=== PATIENT | male | born 1940 ===

== ENCOUNTER 2017-05-04 09:24 | Observation (INO) ==
[2017-05-04 10:16] LABS: Basophils # 0.1 10*3/uL (0.0-0.2); Basophils % 1.2 % (0.0-0.8); Eosinophils # 0.2 10*3/uL (0.0-0.87); Eosinophils % 2.6 % (0.00-10.9); Hemoglobin 16.3 GM/DL (14.0-18.0); Immature Granulocytes % 0.6 %; Immature Granulocytes Absolute 0.05 #; Lymphocytes # 2.1 10*3/uL (1.4-4.0); Lymphocytes % 25.9 % (21.2-54.2); Mean Corpuscular HGB Conc 33.3 GM/DL (32-36); Mean Corpuscular Hemoglobin 28 PG (27-34); Mean Corpuscular Volume 84.2 FL (87-102); Mean Platelet Volume 9.9 FL (9.6-12.0); Monocytes # 0.6 10*3/uL (0.11-0.8); Monocytes % 7.3 % (1.7-12.7); Neutrophils % 62.4 % (38.7-73.9); Platelet Count 267 T/CUMM (130-400); Red Blood Count 5.82 MC/CUMM (3.8-5.5); Red Cell Distribution Width 13.9 % (9.3-17.3); White Blood Count 8.1 T/CUMM (4-12)
[2017-05-04 10:25] LABS: Barbiturates Screen,Urine Negative (Negative); Benzodiazepines Screen,Urine Negative (Negative); Cannabinoid Screen,Urine Negative (Negative); INR 0.9; Opiate Screen,Urine Negative (Negative); Partial Thromboplastin Time 26.7 SECS (0-40); Phencyclidine Screen,Urine Negative (Negative)
[2017-05-04 10:56] LABS: Alanine Aminotransferase 65 U/L (16-61); Albumin 4.4 G/DL (3.4-5.0); Alkaline Phosphatase 60 U/L (45-117); Aspartate Amino Transferase 32 U/L (0-37); Blood Urea Nitrogen 26 MG/DL (7-18); Calcium 9.6 MG/DL (8.5-10.1); Glucose 173 MG/DL (74-106); Potassium 4.4 MMOL/L (3.5-5.1); Sodium 136 MMOL/L (136-145); Thyroid Stimulating Hormone 0.892 uIU/ml (0.358-3.74); Total Protein 7.8 G/DL (6.4-8.3); Troponin I Only < 0.015 NG/ML (0.00-0.045)
[2017-05-04] MEDS ORDERED: ACETAMINOPHEN 325 MG TABLET PO PRN (11:44)
[2017-05-04] MEDS ORDERED: DOCUSATE SODIUM 100 MG CAPSULE PO PRN (11:44)
[2017-05-04] MEDS ORDERED: DEXTROSE 50% 25 GM/50 ML VIAL IV PRN ×2 (11:44→11:48)
[2017-05-04] MEDS ORDERED: LACTULOSE 20 GM/30 ML UDCUP PO PRN (11:44)
[2017-05-04] MEDS ORDERED: MORPHINE 2 MG/1 ML SYRINGE IV PRN (11:44)
[2017-05-04] MEDS ORDERED: MAGNESIUM SULF RIDER 2 GM in PREMIX 1 EACH IV PRN (11:44)
[2017-05-04] MEDS ORDERED: MAGNESIUM SULF RIDER 4 GM in PREMIX 1 EACH IV PRN (11:44)
[2017-05-04] MEDS ORDERED: diphenhydrAMINE CAP 25 MG CAPSULE PO PRN ×2 (11:44→17:46)
[2017-05-04] MEDS ORDERED: GLUCAGON 1 MG VIAL IM PRN ×2 (11:44→11:48)
[2017-05-04] MEDS ORDERED: ZALEPLON 5 MG CAPSULE PO PRN (11:44)
[2017-05-04] MEDS ORDERED: ONDANSETRON 4 MG/2 ML VIAL IV PRN (11:44)
[2017-05-04] MEDS ORDERED: NITROGLYCERIN SL 0.4 MG TABLET SL PRN (11:52)
[2017-05-04] MEDS: CARVEDILOL 3.125 MG TABLET PO SCH ×2 (16:36→17:43)
[2017-05-04] MEDS: INSULIN REGULAR 100 UNIT/ML SUBCUT SCH ×2 (16:36→20:59)
[2017-05-04] MEDS: CLOPIDOGREL 75 MG TABLET PO SCH (16:36)
[2017-05-04] MEDS: PANTOPRAZOLE 40 MG TABLET PO SCH (16:36)
[2017-05-04] MEDS: DUTASTERIDE 0.5 MG CAPSULE PO SCH (20:58)
[2017-05-04] MEDS: ATORVASTATIN 40 MG TABLET PO SCH (20:58)
[2017-05-04] MEDS: ENOXAPARIN 40 MG/0.4 ML SYRINGE SUBCUT SCH (20:59)
[2017-05-05] MEDS: SODIUM CHLORIDE 0.45% 1,000 ML IV SCH ×2 (01:25→11:05)
[2017-05-05 05:21] LABS: Basophils # 0.1 10*3/uL (0.0-0.2); Basophils % 1.1 % (0.0-0.8); Eosinophils # 0.3 10*3/uL (0.0-0.87); Hemoglobin 14.5 GM/DL (14.0-18.0); Immature Granulocytes % 0.4 %; Immature Granulocytes Absolute 0.04 #; Lymphocytes % 32.2 % (21.2-54.2); Mean Corpuscular Hemoglobin 28 PG (27-34); Mean Platelet Volume 9.8 FL (9.6-12.0); Monocytes # 0.8 10*3/uL (0.11-0.8); Monocytes % 8.9 % (1.7-12.7); Neutrophils # 5.1 10*3/uL (1.4-7.4); Neutrophils % 54.4 % (38.7-73.9); Platelet Count 239 T/CUMM (130-400); Red Blood Count 5.24 MC/CUMM (3.8-5.5); Red Cell Distribution Width 13.8 % (9.3-17.3); White Blood Count 9.4 T/CUMM (4-12)
[2017-05-05 05:51] LABS: Albumin 3.7 G/DL (3.4-5.0); Bilirubin,Total 0.6 MG/DL (0.2-1.0); Calcium 8.7 MG/DL (8.5-10.1); Osmolality,Calculated 280.8 MOS/KG (273-304); Potassium 4.2 MMOL/L (3.5-5.1); Total Protein 6.6 G/DL (6.4-8.3)
[2017-05-05] MEDS ORDERED: diphenhydrAMINE CAP 25 MG CAPSULE PO ONE (07:00)
[2017-05-05] MEDS ORDERED: DIAZEPAM 5 MG TABLET PO ONE (07:00)
[2017-05-05] MEDS: INSULIN REGULAR 100 UNIT/ML SUBCUT SCH ×4 (09:45→21:26)
[2017-05-05] MEDS: LOSARTAN 50 MG TABLET PO SCH (10:29)
[2017-05-05] MEDS: CARVEDILOL 3.125 MG TABLET PO SCH ×2 (10:30→16:22)
[2017-05-05] MEDS: ASPIRIN EC 81 MG TABLET PO SCH (10:30)
[2017-05-05] MEDS: ALLOPURINOL 100 MG TABLET PO SCH (10:30)
[2017-05-05] MEDS: CLOPIDOGREL 75 MG TABLET PO SCH (10:30)
[2017-05-05] MEDS: hydroCHLOROthiazide 25 MG TABLET PO SCH (10:30)
[2017-05-05] MEDS: CHLORTHALIDONE 25 MG TABLET PO SCH (10:30)
[2017-05-05] MEDS: PANTOPRAZOLE 40 MG TABLET PO SCH (10:30)
[2017-05-05] MEDS: INSULIN LISPRO PROTAMINE/LISPRO 75/25 100 UNIT/ML SUBCUT SCH (10:33)
[2017-05-05] MEDS ORDERED: LIDOCAINE 1%/EPI INJ 20 ML VIAL ONE (10:39)
[2017-05-05] MEDS ORDERED: HEPARIN/NACL 0.9% 2 UNITS/ML 2,000 ML IV ONE (10:39)
[2017-05-05] MEDS ORDERED: ENOXAPARIN 60 MG/0.6 ML SYRINGE ONE (11:52)
[2017-05-05] MEDS ORDERED: TIROFIBAN 5,000 MCG/100 ML PREMIX IV ONE (11:54)
[2017-05-05] MEDS ORDERED: fentaNYL 100 MCG/2 ML VIAL ONE (11:57)
[2017-05-05] MEDS ORDERED: MIDAZOLAM 2 MG/2 ML VIAL ONE (11:57)
[2017-05-05] MEDS ORDERED: TIROFIBAN 5,000 MCG/100 ML PREMIX IV SCH (12:08)
[2017-05-05] MEDS ORDERED: CLOPIDOGREL 300 MG TABLET ONE (12:11)
[2017-05-05 12:52] LABS: Apearance,Urine CLEAR (Clear); Bilirubin,Urine Negative (Negative); Blood, Urine Small mg/dL (Negative); Glucose,Urine (UA) 50 mg/dL (Negative); Ketones,Urine Negative (Negative); Nitrite,Urine Negative (Negative); Protein,Urine Negative; RBC,Urine 1 /HPF (0-4); Urine Color Colorless (Yellow); Urine Specific Gravity 1.035 (1.001-1.035); Urine Urobilinogen < 2.0 EU/DL (0.2-1.0)
[2017-05-05] MEDS: sitaGLIPtin 100 MG TABLET PO SCH (16:21)
[2017-05-05] MEDS: ENOXAPARIN 40 MG/0.4 ML SYRINGE SUBCUT SCH (21:25)
[2017-05-05] MEDS: ATORVASTATIN 40 MG TABLET PO SCH (21:25)
[2017-05-05] MEDS: DUTASTERIDE 0.5 MG CAPSULE PO SCH (21:25)
[2017-05-06] MEDS: SODIUM CHLORIDE 0.45% 1,000 ML IV SCH (01:45)
[2017-05-06 04:34] LABS: Basophils # 0.1 10*3/uL (0.0-0.2); Basophils % 0.9 % (0.0-0.8); Eosinophils # 0.3 10*3/uL (0.0-0.87); Eosinophils % 3.1 % (0.00-10.9); Hematocrit 42.6 VOL% (42.0-52.0); Hemoglobin 14.2 GM/DL (14.0-18.0); Immature Granulocytes % 0.4 %; Immature Granulocytes Absolute 0.04 #; Lymphocytes # 2.3 10*3/uL (1.4-4.0); Mean Corpuscular HGB Conc 33.3 GM/DL (32-36); Mean Corpuscular Hemoglobin 28 PG (27-34); Mean Corpuscular Volume 83.7 FL (87-102); Mean Platelet Volume 10.1 FL (9.6-12.0); Monocytes # 0.9 10*3/uL (0.11-0.8); Monocytes % 9.5 % (1.7-12.7); Neutrophils % 62.1 % (38.7-73.9); Platelet Count 245 T/CUMM (130-400); Red Blood Count 5.09 MC/CUMM (3.8-5.5); Red Cell Distribution Width 13.9 % (9.3-17.3); White Blood Count 9.7 T/CUMM (4-12)
[2017-05-06 05:20] LABS: Calcium 8.6 MG/DL (8.5-10.1); Osmolality,Calculated 278.1 MOS/KG (273-304); Potassium 4.4 MMOL/L (3.5-5.1)
[2017-05-06] MEDS: LOSARTAN 50 MG TABLET PO SCH (09:43)
[2017-05-06] MEDS: ALLOPURINOL 100 MG TABLET PO SCH (09:43)
[2017-05-06] MEDS: CHLORTHALIDONE 25 MG TABLET PO SCH (09:43)
[2017-05-06] MEDS: hydroCHLOROthiazide 25 MG TABLET PO SCH (09:44)
[2017-05-06] MEDS: ASPIRIN EC 81 MG TABLET PO SCH (09:44)
[2017-05-06] MEDS: INSULIN LISPRO PROTAMINE/LISPRO 75/25 100 UNIT/ML SUBCUT SCH (09:44)
[2017-05-06] MEDS: CARVEDILOL 3.125 MG TABLET PO SCH (09:44)
[2017-05-06] MEDS: sitaGLIPtin 100 MG TABLET PO SCH (09:44)
[2017-05-06] MEDS: PANTOPRAZOLE 40 MG TABLET PO SCH (09:44)
[2017-05-06] MEDS: CLOPIDOGREL 75 MG TABLET PO SCH (09:44)
[2017-05-06] MEDS: INSULIN REGULAR 100 UNIT/ML SUBCUT SCH ×2 (09:56→12:47)
[2017-05-06 12:09] VITALS: BP 129/71
== END 2017-05-06 14:04 | disposition home or self-care (01) ==
LOC: N.ED 09:24 → N.EDINP 09:24 → N.TELEN 14:28
PROVIDERS: ADMIT Internal Medicine Cardiovascular Disease; ATTEND Internal Medicine Cardiovascular Disease

== ENCOUNTER 2020-06-24 23:02 | Inpatient (IN) ==
[2020-06-24] MEDS ORDERED: ONDANSETRON 4 MG/2 ML VIAL IV STA (23:33)
[2020-06-24] MEDS ORDERED: PIPERACILLIN/TAZOBACTAM 3,375 MG in SODIUM CHLORIDE 0.9% 100 ML IV STA (23:33)
[2020-06-24] MEDS ORDERED: DEXAMETHASONE 4 MG/1 ML VIAL IV STA (23:33)
[2020-06-25 00:44] LABS: Basophils % 0.2 % (0.0-0.8); Hematocrit 43.8 VOL% (42.0-52.0); Hemoglobin 14.2 GM/DL (14.0-18.0); Immature Granulocytes % 0.2 %; Immature Granulocytes Absolute 0.01 #; Lymphocytes # 0.6 10*3/uL (1.4-4.0); Lymphocytes % 9.5 % (21.2-54.2); Mean Corpuscular HGB Conc 32.4 GM/DL (32-36); Mean Platelet Volume 9.7 FL (9.6-12.0); Monocytes % 3.7 % (1.7-12.7); Neutrophils % 86.4 % (38.7-73.9); Platelet Count 256 T/CUMM (130-400); Red Blood Count 5.15 MC/CUMM (3.8-5.5); Red Cell Distribution Width 14.1 % (9.3-17.3); White Blood Count 6.5 T/CUMM (4-12)
[2020-06-25 00:51] LABS: PT Patient Result 10.6 SECS (9.8-11.9)
[2020-06-25 00:55] LABS: Bilirubin,Total 0.6 MG/DL (0.2-1.0); Calcium 8.3 MG/DL (8.5-10.1); Osmolality,Calculated 268.2 MOS/KG (273-304); Total Protein 6.9 G/DL (6.4-8.3)
[2020-06-25 01:11] LABS: Bilirubin,Urine Negative (Negative); Blood, Urine Negative (Negative); Glucose,Urine (UA) Negative (Negative); Ketones,Urine Negative (Negative); Mucus,Urine Occasional /LPF (Occasional); Nitrite,Urine Negative (Negative); Protein,Urine 30 MG/DL; RBC,Urine <1 /HPF (0-4); Squamous Epithelial Cell,Urine Occasional /HPF (0-10); Urine Appearance CLEAR (Clear); Urine Color Yellow (Yellow); Urine Specific Gravity 1.012 (1.001-1.035); Urine Urobilinogen < 2.0 EU/DL (0.2-1.0); WBC,Urine 1 /HPF (0-6)
[2020-06-25] MEDS ORDERED: DEXTROSE 50% 25 GM/50 ML VIAL IV PRN ×2 (02:33)
[2020-06-25] MEDS ORDERED: GLUCAGON 1 MG VIAL IM PRN ×2 (02:33)
[2020-06-25] MEDS ORDERED: ONDANSETRON 4 MG/2 ML VIAL IV PRN (02:33)
[2020-06-25] MEDS ORDERED: MELATONIN 3 MG TABLET PO PRN (02:33)
[2020-06-25] MEDS ORDERED: ACETAMINOPHEN 325 MG TABLET PO PRN (02:33)
[2020-06-25 02:39] LABS: Ferritin 1701.8 ng/ml (26-388)
[2020-06-25] MEDS: ENOXAPARIN 40 MG/0.4 ML SYRINGE SUBCUT SCH (06:40)
[2020-06-25] MEDS: ALBUTEROL INHALER 18 GM INH SCH ×3 (08:23→20:15)
[2020-06-25] MEDS: DEXAMETHASONE 4 MG/1 ML VIAL IV SCH (08:24)
[2020-06-25] MEDS: INSULIN REGULAR 100 UNIT/ML SUBCUT SCH ×4 (08:24→21:12)
[2020-06-25] MEDS: PIPERACILLIN/TAZOBACTAM 3,375 MG in SODIUM CHLORIDE 0.9% 100 ML IV SCH ×2 (08:24→18:12)
[2020-06-25] MEDS: PANTOPRAZOLE 40 MG TABLET PO SCH (08:25)
[2020-06-25] MEDS: CHOLECALCIFEROL 1,000 UNIT TABLET PO SCH (08:25)
[2020-06-25] MEDS: ZINC GLUCONATE 50 MG TABLET PO SCH (08:25)
[2020-06-25] MEDS: ASCORBIC ACID 500 MG TABLET PO SCH ×2 (08:29→21:13)
[2020-06-25] MEDS: CETIRIZINE 10 MG TABLET PO SCH (08:29)
[2020-06-25] MEDS ORDERED: FAMOTIDINE 20 MG TABLET PO SCH (09:00)
[2020-06-25] MEDS ORDERED: SODIUM CHLORIDE 0.9% 1,000 ML IV PRN (11:16)
[2020-06-25] MEDS ORDERED: REMDESIVIR 200 MG in SODIUM CHLORIDE 0.9% 210 ML IV ONE (11:30)
[2020-06-25] MEDS ORDERED: BENZONATATE 100 MG CAPSULE PO PRN (20:34)
[2020-06-25] MEDS: guaiFENesin/DM ER 600-30 MG TABLET PO PRN (21:13)
[2020-06-26] MEDS: PIPERACILLIN/TAZOBACTAM 3,375 MG in SODIUM CHLORIDE 0.9% 100 ML IV SCH ×4 (00:52→23:24)
[2020-06-26] MEDS: ALBUTEROL INHALER 18 GM INH SCH ×4 (01:54→19:10)
[2020-06-26 03:51] LABS: ABG Base Excess -5.5 MMOL/L (-2.5-2.5); ABG HCO3 17.6 MMOL/L (20-26); ABG Oxygen Saturation 98.8 % (95-100); ABG PCO2 28.4 MM HG (35-48); ABG PH 7.409 (7.35-7.45); ABG PO2 158.7 MM HG (80-95); ABG TCO2 18.4 MMOL/L (23-27)
[2020-06-26 05:43] LABS: Basophils % 0.1 % (0.0-0.8); Hematocrit 48.8 VOL% (42.0-52.0); Hemoglobin 15.6 GM/DL (14.0-18.0); Immature Granulocytes % 0.4 %; Lymphocytes % 8.9 % (21.2-54.2); Mean Corpuscular Volume 85.5 FL (87-102); Mean Platelet Volume 9.4 FL (9.6-12.0); Monocytes % 9.7 % (1.7-12.7); Neutrophils % 80.9 % (38.7-73.9); Platelet Count 360 T/CUMM (130-400); Red Blood Count 5.71 MC/CUMM (3.8-5.5); Red Cell Distribution Width 14.4 % (9.3-17.3); White Blood Count 11.4 T/CUMM (4-12)
[2020-06-26 05:44] LABS: Immature Granulocytes Absolute 0.04 #
[2020-06-26 06:23] LABS: Albumin 2.9 G/DL (3.4-5.0); Bilirubin,Total 1.2 MG/DL (0.2-1.0); Calcium 8.6 MG/DL (8.5-10.1); Ferritin 2265.1 ng/ml (26-388); Osmolality,Calculated 278.5 MOS/KG (273-304); Potassium 4.3 MMOL/L (3.5-5.1); Total Protein 7.7 G/DL (6.4-8.3)
[2020-06-26] MEDS: ENOXAPARIN 40 MG/0.4 ML SYRINGE SUBCUT SCH (07:00)
[2020-06-26] MEDS: CHOLECALCIFEROL 1,000 UNIT TABLET PO SCH (08:39)
[2020-06-26] MEDS: INSULIN REGULAR 100 UNIT/ML SUBCUT SCH ×4 (08:39→21:10)
[2020-06-26] MEDS: ASCORBIC ACID 500 MG TABLET PO SCH ×2 (08:39→21:10)
[2020-06-26] MEDS: PANTOPRAZOLE 40 MG TABLET PO SCH (08:39)
[2020-06-26] MEDS: guaiFENesin/DM ER 600-30 MG TABLET PO PRN (08:39)
[2020-06-26] MEDS: DEXAMETHASONE 4 MG/1 ML VIAL IV SCH (08:39)
[2020-06-26] MEDS: CETIRIZINE 10 MG TABLET PO SCH (08:39)
[2020-06-26] MEDS: FAMOTIDINE 20 MG TABLET PO SCH (08:39)
[2020-06-26] MEDS: ZINC GLUCONATE 50 MG TABLET PO SCH (08:39)
[2020-06-26] MEDS: REMDESIVIR 100 MG in SODIUM CHLORIDE 0.9% 100 ML IV SCH (08:42)
[2020-06-26 17:07] LABS: ABG Base Excess -5.5 MMOL/L (-2.5-2.5); ABG Oxygen Saturation 95.8 % (95-100); ABG PCO2 29.9 MM HG (35-48); ABG PH 7.397 (7.35-7.45); ABG PO2 83.2 MM HG (80-95); ABG TCO2 18.9 MMOL/L (23-27)
[2020-06-27] MEDS: ALBUTEROL INHALER 18 GM INH SCH ×4 (01:11→19:03)
[2020-06-27] MEDS: ENOXAPARIN 40 MG/0.4 ML SYRINGE SUBCUT SCH (05:23)
[2020-06-27 06:33] LABS: Basophils % 0.1 % (0.0-0.8); Hematocrit 43.7 VOL% (42.0-52.0); Hemoglobin 14.2 GM/DL (14.0-18.0); Immature Granulocytes % 0.3 %; Immature Granulocytes Absolute 0.03 #; Lymphocytes # 0.9 10*3/uL (1.4-4.0); Lymphocytes % 9.2 % (21.2-54.2); Mean Corpuscular HGB Conc 32.5 GM/DL (32-36); Mean Corpuscular Volume 85.7 FL (87-102); Mean Platelet Volume 9.4 FL (9.6-12.0); Monocytes % 10.3 % (1.7-12.7); Neutrophils % 80.1 % (38.7-73.9); Platelet Count 309 T/CUMM (130-400); Red Cell Distribution Width 14.4 % (9.3-17.3); White Blood Count 9.3 T/CUMM (4-12)
[2020-06-27 08:03] LABS: Calcium 8.5 MG/DL (8.5-10.1); Osmolality,Calculated 297.7 MOS/KG (273-304); Potassium 4.4 MMOL/L (3.5-5.1)
[2020-06-27 08:08] LABS: Ferritin 1604.7 ng/ml (26-388)
[2020-06-27] MEDS: ZINC GLUCONATE 50 MG TABLET PO SCH (09:51)
[2020-06-27] MEDS: DEXAMETHASONE 4 MG/1 ML VIAL IV SCH (09:51)
[2020-06-27] MEDS: FAMOTIDINE 20 MG TABLET PO SCH (09:51)
[2020-06-27] MEDS: CHOLECALCIFEROL 1,000 UNIT TABLET PO SCH (09:51)
[2020-06-27] MEDS: ASCORBIC ACID 500 MG TABLET PO SCH ×2 (09:51→20:48)
[2020-06-27] MEDS: PANTOPRAZOLE 40 MG TABLET PO SCH (09:51)
[2020-06-27] MEDS: CETIRIZINE 10 MG TABLET PO SCH (09:51)
[2020-06-27] MEDS: INSULIN REGULAR 100 UNIT/ML SUBCUT SCH ×4 (09:51→20:48)
[2020-06-27] MEDS: REMDESIVIR 100 MG in SODIUM CHLORIDE 0.9% 100 ML IV SCH (09:54)
[2020-06-27] MEDS: PIPERACILLIN/TAZOBACTAM 3,375 MG in SODIUM CHLORIDE 0.9% 100 ML IV SCH ×3 (11:30→23:16)
[2020-06-28] MEDS: ALBUTEROL INHALER 18 GM INH SCH ×4 (00:11→18:18)
[2020-06-28] MEDS: ENOXAPARIN 40 MG/0.4 ML SYRINGE SUBCUT SCH (05:23)
[2020-06-28 07:15] LABS: Basophils % 0.2 % (0.0-0.8); Hematocrit 46.1 VOL% (42.0-52.0); Immature Granulocytes % 0.7 %; Immature Granulocytes Absolute 0.07 #; Lymphocytes # 0.9 10*3/uL (1.4-4.0); Lymphocytes % 8.5 % (21.2-54.2); Mean Corpuscular HGB Conc 32.5 GM/DL (32-36); Mean Corpuscular Volume 85.1 FL (87-102); Mean Platelet Volume 9.3 FL (9.6-12.0); Monocytes % 9.7 % (1.7-12.7); Neutrophils % 80.9 % (38.7-73.9); Platelet Count 345 T/CUMM (130-400); Red Blood Count 5.42 MC/CUMM (3.8-5.5); Red Cell Distribution Width 14.6 % (9.3-17.3); White Blood Count 10.8 T/CUMM (4-12)
[2020-06-28 07:23] LABS: Calcium 8.8 MG/DL (8.5-10.1); Osmolality,Calculated 298.4 MOS/KG (273-304); Potassium 4.3 MMOL/L (3.5-5.1)
[2020-06-28 07:28] LABS: Ferritin 1554.6 ng/ml (26-388)
[2020-06-28] MEDS: INSULIN REGULAR 100 UNIT/ML SUBCUT SCH ×4 (08:16→20:45)
[2020-06-28] MEDS: CETIRIZINE 10 MG TABLET PO SCH (09:10)
[2020-06-28] MEDS: DEXAMETHASONE 4 MG/1 ML VIAL IV SCH (09:10)
[2020-06-28] MEDS: ASCORBIC ACID 500 MG TABLET PO SCH ×2 (09:10→20:45)
[2020-06-28] MEDS: PANTOPRAZOLE 40 MG TABLET PO SCH (09:10)
[2020-06-28] MEDS: ZINC GLUCONATE 50 MG TABLET PO SCH (09:10)
[2020-06-28] MEDS: CHOLECALCIFEROL 1,000 UNIT TABLET PO SCH (09:10)
[2020-06-28] MEDS: FAMOTIDINE 20 MG TABLET PO SCH (09:10)
[2020-06-28] MEDS: REMDESIVIR 100 MG in SODIUM CHLORIDE 0.9% 100 ML IV SCH (09:13)
[2020-06-28] MEDS ORDERED: LACTATED RINGERS 1,000 ML IV SCH (10:30)
[2020-06-28] MEDS: PIPERACILLIN/TAZOBACTAM 3,375 MG in SODIUM CHLORIDE 0.9% 100 ML IV SCH ×2 (11:03→16:20)
[2020-06-29] MEDS: PIPERACILLIN/TAZOBACTAM 3,375 MG in SODIUM CHLORIDE 0.9% 100 ML IV SCH ×2 (00:07→09:17)
[2020-06-29] MEDS: ALBUTEROL INHALER 18 GM INH SCH ×4 (00:07→19:13)
[2020-06-29 04:03] LABS: Basophils % 0.2 % (0.0-0.8); Hematocrit 47.3 VOL% (42.0-52.0); Immature Granulocytes % 0.5 %; Immature Granulocytes Absolute 0.06 #; Lymphocytes # 1.2 10*3/uL (1.4-4.0); Lymphocytes % 9.6 % (21.2-54.2); Mean Corpuscular HGB Conc 31.7 GM/DL (32-36); Mean Corpuscular Volume 86.2 FL (87-102); Mean Platelet Volume 9.2 FL (9.6-12.0); Monocytes % 7.8 % (1.7-12.7); Neutrophils % 81.9 % (38.7-73.9); Platelet Count 339 T/CUMM (130-400); Red Blood Count 5.49 MC/CUMM (3.8-5.5); Red Cell Distribution Width 14.5 % (9.3-17.3); White Blood Count 12.2 T/CUMM (4-12)
[2020-06-29 04:27] LABS: Calcium 8.7 MG/DL (8.5-10.1); Osmolality,Calculated 296.4 MOS/KG (273-304); Potassium 4.3 MMOL/L (3.5-5.1)
[2020-06-29 04:29] LABS: Albumin 2.7 G/DL (3.4-5.0); Bilirubin,Direct 0.27 MG/DL (0.0-0.20); Bilirubin,Indirect 0.8 MG/DL (0.0-1.0); Bilirubin,Total 1.1 MG/DL (0.2-1.0); Calcium 8.3 MG/DL (8.5-10.1); Potassium 4.4 MMOL/L (3.5-5.1); Total Protein 6.5 G/DL (6.4-8.3)
[2020-06-29 04:32] LABS: Ferritin 1693.2 ng/ml (26-388)
[2020-06-29 04:33] LABS: Platelet Estimate Adequate
[2020-06-29] MEDS: ENOXAPARIN 40 MG/0.4 ML SYRINGE SUBCUT SCH (05:35)
[2020-06-29] MEDS: CETIRIZINE 10 MG TABLET PO SCH (09:16)
[2020-06-29] MEDS: ZINC GLUCONATE 50 MG TABLET PO SCH (09:16)
[2020-06-29] MEDS: guaiFENesin/DM ER 600-30 MG TABLET PO PRN (09:16)
[2020-06-29] MEDS: CHOLECALCIFEROL 1,000 UNIT TABLET PO SCH (09:16)
[2020-06-29] MEDS: ASCORBIC ACID 500 MG TABLET PO SCH ×2 (09:16→21:46)
[2020-06-29] MEDS: FAMOTIDINE 20 MG TABLET PO SCH (09:16)
[2020-06-29] MEDS: PANTOPRAZOLE 40 MG TABLET PO SCH (09:16)
[2020-06-29] MEDS: DEXAMETHASONE 4 MG/1 ML VIAL IV SCH (09:17)
[2020-06-29] MEDS: INSULIN REGULAR 100 UNIT/ML SUBCUT SCH ×5 (09:17→23:49)
[2020-06-29] MEDS: LORazepam 2 MG/1 ML VIAL IV PRN ×2 (09:52→19:36)
[2020-06-29] MEDS: REMDESIVIR 100 MG in SODIUM CHLORIDE 0.9% 100 ML IV SCH (13:52)
[2020-06-29] MEDS: cefTRIAXone 1,000 MG in SYRINGE 1 EACH IV SCH (13:52)
[2020-06-29] MEDS ORDERED: HALOPERIDOL 5 MG/ML AMP IV PRN (17:04)
[2020-06-29 18:25] LABS: Bacteria,Urine Occasional /HPF (Few); Bilirubin,Urine Negative (Negative); Blood, Urine Negative (Negative); Glucose,Urine (UA) >=500 mg/dL (Negative); Ketones,Urine Negative (Negative); Mucus,Urine Occasional /LPF (Occasional); Nitrite,Urine Negative (Negative); Protein,Urine 100 MG/DL; RBC,Urine <1 /HPF (0-4); Squamous Epithelial Cell,Urine Occasional /HPF (0-10); Urine Appearance CLEAR (Clear); Urine Color Yellow (Yellow); Urine Specific Gravity 1.018 (1.001-1.035); WBC,Urine 1 /HPF (0-6)
[2020-06-29] MEDS ORDERED: MORPHINE 4 MG/1 ML VIAL IV ONE (20:41)
[2020-06-29] MEDS: MORPHINE 4 MG/1 ML VIAL IV PRN (22:03)
[2020-06-30] MEDS: LORazepam 2 MG/1 ML VIAL IV PRN ×4 (02:07→22:40)
[2020-06-30] MEDS: ALBUTEROL INHALER 18 GM INH SCH ×4 (02:26→18:05)
[2020-06-30 04:57] LABS: Basophils % 0.2 % (0.0-0.8); Hemoglobin 14.8 GM/DL (14.0-18.0); Immature Granulocytes % 0.7 %; Lymphocytes % 7.4 % (21.2-54.2); Mean Corpuscular HGB Conc 32.2 GM/DL (32-36); Mean Corpuscular Volume 84.9 FL (87-102); Mean Platelet Volume 9.4 FL (9.6-12.0); Monocytes % 4.4 % (1.7-12.7); Neutrophils % 87.3 % (38.7-73.9); Platelet Count 294 T/CUMM (130-400); Red Blood Count 5.42 MC/CUMM (3.8-5.5); Red Cell Distribution Width 14.6 % (9.3-17.3); White Blood Count 13.8 T/CUMM (4-12)
[2020-06-30 05:22] LABS: Platelet Estimate Adequate
[2020-06-30 05:25] LABS: Albumin 2.5 G/DL (3.4-5.0); Bilirubin,Total 0.5 MG/DL (0.2-1.0); Calcium 8.6 MG/DL (8.5-10.1); Osmolality,Calculated 306.8 MOS/KG (273-304); Potassium 4.6 MMOL/L (3.5-5.1); Total Protein 6.5 G/DL (6.4-8.3)
[2020-06-30] MEDS: ENOXAPARIN 40 MG/0.4 ML SYRINGE SUBCUT SCH (06:08)
[2020-06-30] MEDS: INSULIN REGULAR 100 UNIT/ML SUBCUT SCH ×4 (06:08→23:27)
[2020-06-30] MEDS: DEXAMETHASONE 4 MG/1 ML VIAL IV SCH (08:53)
[2020-06-30] MEDS: cefTRIAXone 1,000 MG in SYRINGE 1 EACH IV SCH (13:17)
[2020-06-30] MEDS: MORPHINE 4 MG/1 ML VIAL IV PRN ×2 (13:19→19:30)
[2020-06-30 13:43] LABS: ABG Base Excess -4.6 MMOL/L (-2.5-2.5); ABG HCO3 20.5 MMOL/L (20-26); ABG Oxygen Saturation 91.9 % (95-100); ABG PCO2 32.9 MM HG (35-48); ABG PO2 67.9 MM HG (80-95); ABG TCO2 16.5 MMOL/L (23-27); Pt O2 Delivery Device BIPAP
[2020-06-30] MEDS: ZINC GLUCONATE 50 MG TABLET PO SCH (14:00)
[2020-06-30] MEDS: CETIRIZINE 10 MG TABLET PO SCH (14:00)
[2020-06-30] MEDS: ASCORBIC ACID 500 MG TABLET PO SCH (14:00)
[2020-06-30] MEDS: CHOLECALCIFEROL 1,000 UNIT TABLET PO SCH (14:00)
[2020-06-30] MEDS: SODIUM BICARB INJ 50 MEQ in SODIUM CHLORIDE 0.45% 1,000 ML IV SCH ×2 (14:52→23:28)
[2020-06-30] MEDS: PANTOPRAZOLE 40 MG TABLET PO SCH (15:04)
[2020-06-30] MEDS: FAMOTIDINE 20 MG TABLET PO SCH (15:04)
[2020-06-30] MEDS ORDERED: LORazepam 2 MG/1 ML VIAL ONE (15:26)
[2020-06-30] MEDS: FAMOTIDINE 20 MG/2 ML VIAL IV SCH (15:58)
[2020-07-01] MEDS: ALBUTEROL INHALER 18 GM INH SCH ×4 (00:09→21:19)
[2020-07-01] MEDS: MORPHINE 4 MG/1 ML VIAL IV PRN (04:19)
[2020-07-01] MEDS: LORazepam 2 MG/1 ML VIAL IV PRN ×3 (04:29→20:40)
[2020-07-01 04:35] LABS: Basophils % 0.1 % (0.0-0.8); Hematocrit 50.5 VOL% (42.0-52.0); Hemoglobin 15.7 GM/DL (14.0-18.0); Immature Granulocytes % 0.6 %; Immature Granulocytes Absolute 0.09 #; Lymphocytes # 0.9 10*3/uL (1.4-4.0); Lymphocytes % 6.4 % (21.2-54.2); Mean Corpuscular HGB Conc 31.1 GM/DL (32-36); Mean Corpuscular Volume 87.8 FL (87-102); Mean Platelet Volume 9.7 FL (9.6-12.0); Monocytes % 2.7 % (1.7-12.7); Neutrophils % 90.2 % (38.7-73.9); Platelet Count 214 T/CUMM (130-400); Red Blood Count 5.75 MC/CUMM (3.8-5.5); Red Cell Distribution Width 14.8 % (9.3-17.3); White Blood Count 14.5 T/CUMM (4-12)
[2020-07-01] MEDS ORDERED: METOPROLOL TARTRATE 5 MG/5 ML VIAL IV ONE (05:05)
[2020-07-01] MEDS: INSULIN REGULAR 100 UNIT/ML SUBCUT SCH ×3 (05:13→17:35)
[2020-07-01] MEDS: ENOXAPARIN 40 MG/0.4 ML SYRINGE SUBCUT SCH (05:13)
[2020-07-01 05:17] LABS: Albumin 2.6 G/DL (3.4-5.0); Bilirubin,Total 1.4 MG/DL (0.2-1.0); Osmolality,Calculated 313.6 MOS/KG (273-304)
[2020-07-01] MEDS: DEXAMETHASONE 4 MG/1 ML VIAL IV SCH (08:51)
[2020-07-01] MEDS ORDERED: SODIUM BICARB INJ 100 MEQ in SODIUM CHLORIDE 0.45% 1,000 ML IV SCH (09:30)
[2020-07-01] MEDS ORDERED: MIDAZOLAM 2 MG/2 ML VIAL ONE ×2 (09:33→17:52)
[2020-07-01] MEDS ORDERED: MIDAZOLAM 2 MG/2 ML VIAL IV ONE ×3 (09:35→17:55)
[2020-07-01] MEDS: SODIUM BICARB INJ 50 MEQ in SODIUM CHLORIDE 0.45% 1,000 ML IV SCH (09:46)
[2020-07-01] MEDS: cefTRIAXone 1,000 MG in SYRINGE 1 EACH IV SCH (12:50)
[2020-07-01] MEDS: DEXMEDETOMIDINE 400 MCG in SODIUM CHLORIDE 0.9% 96 ML IV PRN (13:00)
[2020-07-01] MEDS: FAMOTIDINE 20 MG/2 ML VIAL IV SCH (14:11)
[2020-07-01] MEDS: fentaNYL 25 MCG/HR PATCH TRANSDERM SCH (16:43)
[2020-07-01 17:23] VITALS: BP 110/60
[2020-07-01] MEDS: ENOXAPARIN 80 MG/0.8 ML SYRINGE SUBCUT SCH (17:35)
[2020-07-01] MEDS: SODIUM BICARB INJ 100 MEQ in STERILE WATER INJ 1,000 ML IV SCH (18:19)
[2020-07-02] MEDS: INSULIN REGULAR 100 UNIT/ML SUBCUT SCH ×4 (00:53→17:46)
[2020-07-02] MEDS: ALBUTEROL INHALER 18 GM INH SCH ×4 (03:45→20:49)
[2020-07-02 04:12] LABS: Basophils % 0.1 % (0.0-0.8); Hemoglobin 14.7 GM/DL (14.0-18.0); Immature Granulocytes % 0.6 %; Immature Granulocytes Absolute 0.07 #; Lymphocytes # 0.7 10*3/uL (1.4-4.0); Lymphocytes % 5.6 % (21.2-54.2); Mean Corpuscular Volume 86.8 FL (87-102); Mean Platelet Volume 10.4 FL (9.6-12.0); Monocytes % 3.1 % (1.7-12.7); Neutrophils % 90.6 % (38.7-73.9); Platelet Count 189 T/CUMM (130-400); Red Cell Distribution Width 14.7 % (9.3-17.3); White Blood Count 11.7 T/CUMM (4-12)
[2020-07-02 04:34] LABS: Lymphocytes 4 % (20-55); Platelet Estimate Adequate; Segmented Neutrophils 93 % (50-85); Total Cells Counted 100
[2020-07-02 04:39] LABS: Albumin 2.4 G/DL (3.4-5.0); Bilirubin,Total 0.8 MG/DL (0.2-1.0); Calcium 8.2 MG/DL (8.5-10.1); Osmolality,Calculated 317.4 MOS/KG (273-304); Potassium 4.6 MMOL/L (3.5-5.1); Total Protein 6.2 G/DL (6.4-8.3)
[2020-07-02] MEDS: SODIUM BICARB INJ 100 MEQ in STERILE WATER INJ 1,000 ML IV SCH ×2 (06:05→20:48)
[2020-07-02] MEDS: LORazepam 2 MG/1 ML VIAL IV PRN (07:42)
[2020-07-02] MEDS: DEXAMETHASONE 4 MG/1 ML VIAL IV SCH (08:13)
[2020-07-02] MEDS ORDERED: FUROSEMIDE 40 MG/4 ML VIAL IV ONE (08:39)
[2020-07-02] MEDS: DEXMEDETOMIDINE 400 MCG in SODIUM CHLORIDE 0.9% 96 ML IV PRN (10:03)
[2020-07-02] MEDS: cefTRIAXone 1,000 MG in SYRINGE 1 EACH IV SCH (11:57)
[2020-07-02] MEDS: FAMOTIDINE 20 MG/2 ML VIAL IV SCH (12:38)
[2020-07-02] MEDS: FAT EMULSION 20% 250 ML IV SCH (16:18)
[2020-07-02] MEDS: ENOXAPARIN 80 MG/0.8 ML SYRINGE SUBCUT SCH (16:41)
[2020-07-02] MEDS ORDERED: TRACE ELEMENTS IV SCH (17:00)
[2020-07-02] MEDS ORDERED: DEXTROSE 10% 1,000 ML IV PRN (17:00)
[2020-07-02] MEDS ORDERED: [UNRECOGNIZED DRUG - OTHER] IV SCH (17:00)
[2020-07-02] MEDS ORDERED: INSULIN REGULAR IV SCH (17:00)
[2020-07-03] MEDS: INSULIN REGULAR 100 UNIT/ML SUBCUT SCH ×4 (01:22→19:29)
[2020-07-03] MEDS: ALBUTEROL INHALER 18 GM INH SCH ×4 (01:22→20:08)
[2020-07-03] MEDS: SODIUM BICARB INJ 100 MEQ in STERILE WATER INJ 1,000 ML IV SCH (01:22)
[2020-07-03 03:53] LABS: Basophils % 0.1 % (0.0-0.8); Hematocrit 48.4 VOL% (42.0-52.0); Hemoglobin 14.8 GM/DL (14.0-18.0); Immature Granulocytes % 0.7 %; Immature Granulocytes Absolute 0.08 #; Lymphocytes # 0.5 10*3/uL (1.4-4.0); Lymphocytes % 4.7 % (21.2-54.2); Mean Corpuscular HGB Conc 30.6 GM/DL (32-36); Mean Corpuscular Volume 88.8 FL (87-102); Mean Platelet Volume 10.9 FL (9.6-12.0); Neutrophils % 91.5 % (38.7-73.9); Platelet Count 206 T/CUMM (130-400); Red Blood Count 5.45 MC/CUMM (3.8-5.5); Red Cell Distribution Width 14.5 % (9.3-17.3); White Blood Count 10.9 T/CUMM (4-12)
[2020-07-03 04:21] LABS: Albumin 2.4 G/DL (3.4-5.0); Bilirubin,Total 1.3 MG/DL (0.2-1.0); Calcium 8.2 MG/DL (8.5-10.1); Osmolality,Calculated 321.4 MOS/KG (273-304); Potassium 4.1 MMOL/L (3.5-5.1); Total Protein 6.1 G/DL (6.4-8.3)
[2020-07-03 04:22] LABS: Lymphocytes 3 % (20-55); Platelet Estimate Normal; Segmented Neutrophils 96 % (50-85); Total Cells Counted 100
[2020-07-03] MEDS ORDERED: SILVER NITRATE STICK 1 EACH TOP ONE (05:50)
[2020-07-03] MEDS: DEXAMETHASONE 4 MG/1 ML VIAL IV SCH (08:12)
[2020-07-03] MEDS: LORazepam 2 MG/1 ML VIAL IV PRN ×3 (09:13→20:20)
[2020-07-03] MEDS ORDERED: FUROSEMIDE 40 MG/4 ML VIAL IV ONE (11:12)
[2020-07-03] MEDS ORDERED: INSULIN GLARGINE 100 UNIT/ML SUBCUT SCH (11:30)
[2020-07-03] MEDS: MORPHINE 4 MG/1 ML VIAL IV PRN (11:55)
[2020-07-03] MEDS: cefTRIAXone 1,000 MG in SYRINGE 1 EACH IV SCH (12:08)
[2020-07-03] MEDS: FAMOTIDINE 20 MG/2 ML VIAL IV SCH (13:46)
[2020-07-03] MEDS: DEXMEDETOMIDINE 400 MCG in SODIUM CHLORIDE 0.9% 96 ML IV PRN (13:57)
[2020-07-03] MEDS: FAT EMULSION 20% 250 ML IV SCH (16:57)
[2020-07-03] MEDS ORDERED: TRACE ELEMENTS (5) 1 ML, MULTIVITAMIN INJ 10 ML, INSULIN REGULAR 20 UNIT in AMINO ACIDS... IV SCH (17:00)
[2020-07-03] MEDS: ENOXAPARIN 80 MG/0.8 ML SYRINGE SUBCUT SCH (18:40)
[2020-07-03] MEDS ORDERED: hydrALAZINE 20 MG/1 ML VIAL IV PRN (21:46)
[2020-07-04] MEDS: DEXMEDETOMIDINE 400 MCG in SODIUM CHLORIDE 0.9% 96 ML IV PRN ×3 (00:22→19:55)
[2020-07-04] MEDS: INSULIN REGULAR 100 UNIT/ML SUBCUT SCH ×4 (00:29→18:26)
[2020-07-04] MEDS: ALBUTEROL INHALER 18 GM INH SCH ×4 (03:10→20:47)
[2020-07-04 04:55] LABS: Basophils % 0.3 % (0.0-0.8); Hematocrit 51.2 VOL% (42.0-52.0); Hemoglobin 15.9 GM/DL (14.0-18.0); Immature Granulocytes % 1.2 %; Immature Granulocytes Absolute 0.13 #; Lymphocytes # 0.4 10*3/uL (1.4-4.0); Lymphocytes % 3.6 % (21.2-54.2); Mean Corpuscular HGB Conc 31.1 GM/DL (32-36); Mean Corpuscular Volume 87.8 FL (87-102); Mean Platelet Volume 11.3 FL (9.6-12.0); Monocytes % 2.6 % (1.7-12.7); Neutrophils % 92.3 % (38.7-73.9); Platelet Count 216 T/CUMM (130-400); Red Blood Count 5.83 MC/CUMM (3.8-5.5); Red Cell Distribution Width 14.5 % (9.3-17.3); White Blood Count 11.2 T/CUMM (4-12)
[2020-07-04 05:07] LABS: Albumin 2.3 G/DL (3.4-5.0); Bilirubin,Total 1.2 MG/DL (0.2-1.0); Calcium 9.3 MG/DL (8.5-10.1); Potassium 4.4 MMOL/L (3.5-5.1); Total Protein 6.4 G/DL (6.4-8.3)
[2020-07-04 05:13] LABS: Lymphocytes 1 % (20-55); Platelet Estimate Adequate; Segmented Neutrophils 98 % (50-85); Total Cells Counted 100
[2020-07-04] MEDS: SALIVA SUBSTITUTE SPRAY 60 ML CAN SWISH/SWAL PRN (05:40)
[2020-07-04] MEDS: DEXAMETHASONE 4 MG/1 ML VIAL IV SCH (08:31)
[2020-07-04] MEDS: fentaNYL 25 MCG/HR PATCH TRANSDERM SCH (08:32)
[2020-07-04] MEDS ORDERED: INSULIN GLARGINE 100 UNIT/ML SUBCUT ONE (09:00)
[2020-07-04] MEDS: INSULIN GLARGINE 100 UNIT/ML SUBCUT SCH (09:01)
[2020-07-04] MEDS: AZITHROMYCIN INJ 250 MG in SODIUM CHLORIDE 0.9% 250 ML IV SCH (09:10)
[2020-07-04] MEDS: LORazepam 2 MG/1 ML VIAL IV PRN ×2 (09:18→14:58)
[2020-07-04] MEDS: cefTRIAXone 1,000 MG in SYRINGE 1 EACH IV SCH (12:23)
[2020-07-04] MEDS: FAMOTIDINE 20 MG/2 ML VIAL IV SCH (14:56)
[2020-07-04] MEDS: FAT EMULSION 20% 250 ML IV SCH (15:00)
[2020-07-04] MEDS ORDERED: INSULIN REGULAR IV SCH (17:00)
[2020-07-04] MEDS ORDERED: TRACE ELEMENTS IV SCH (17:00)
[2020-07-04] MEDS ORDERED: [UNRECOGNIZED DRUG - OTHER] IV SCH (17:00)
[2020-07-04] MEDS: DEXT IV SCH (17:30)
[2020-07-04] MEDS: LYTES IV SCH (17:30)
[2020-07-04] MEDS: AMINO ACIDS IV SCH (17:30)
[2020-07-04] MEDS: INSULIN REGULAR IV SCH (17:30)
[2020-07-04] MEDS: ENOXAPARIN 80 MG/0.8 ML SYRINGE SUBCUT SCH (17:30)
[2020-07-04] MEDS: MORPHINE 4 MG/1 ML VIAL IV PRN (18:22)
[2020-07-05] MEDS: INSULIN REGULAR 100 UNIT/ML SUBCUT SCH ×4 (01:05→18:02)
[2020-07-05] MEDS: ALBUTEROL INHALER 18 GM INH SCH ×4 (01:06→20:51)
[2020-07-05 03:34] LABS: ABG Base Excess 4.2 MMOL/L (-2.5-2.5); ABG HCO3 28.2 MMOL/L (20-26); ABG Oxygen Saturation 97.6 % (95-100); ABG PCO2 42.8 MM HG (35-48); ABG PH 7.439 (7.35-7.45); ABG TCO2 24.1 MMOL/L (23-27)
[2020-07-05] MEDS: DEXMEDETOMIDINE 400 MCG in SODIUM CHLORIDE 0.9% 96 ML IV PRN ×3 (03:46→18:00)
[2020-07-05 05:57] LABS: Calcium 9.3 MG/DL (8.5-10.1); Osmolality,Calculated 323.1 MOS/KG (273-304); Potassium 4.3 MMOL/L (3.5-5.1)
[2020-07-05] MEDS: LORazepam 2 MG/1 ML VIAL IV PRN ×3 (08:23→21:14)
[2020-07-05] MEDS: INSULIN GLARGINE 100 UNIT/ML SUBCUT SCH (08:31)
[2020-07-05] MEDS: AZITHROMYCIN INJ 250 MG in SODIUM CHLORIDE 0.9% 250 ML IV SCH (09:25)
[2020-07-05] MEDS: cefTRIAXone 1,000 MG in SYRINGE 1 EACH IV SCH (11:33)
[2020-07-05] MEDS: MORPHINE 4 MG/1 ML VIAL IV PRN (12:57)
[2020-07-05] MEDS: FAMOTIDINE 20 MG/2 ML VIAL IV SCH (15:16)
[2020-07-05] MEDS: FAT EMULSION 20% 250 ML IV SCH (15:18)
[2020-07-05] MEDS ORDERED: SODIUM CHLORIDE 0.9% 500 ML IV ONE (17:12)
[2020-07-05] MEDS: INSULIN REGULAR IV SCH (17:41)
[2020-07-05] MEDS: LYTES IV SCH (17:41)
[2020-07-05] MEDS: DEXT IV SCH (17:41)
[2020-07-05] MEDS: AMINO ACIDS IV SCH (17:41)
[2020-07-05] MEDS: SALIVA SUBSTITUTE SPRAY 60 ML CAN SWISH/SWAL PRN (18:02)
[2020-07-05] MEDS: ENOXAPARIN 80 MG/0.8 ML SYRINGE SUBCUT SCH (18:02)
[2020-07-06] MEDS ORDERED: SODIUM CHLORIDE 0.9% 500 ML IV ONE (00:39)
[2020-07-06] MEDS: INSULIN REGULAR 100 UNIT/ML SUBCUT SCH ×4 (00:48→17:38)
[2020-07-06] MEDS: PHENYLEPHRINE DRIP 40 MG/250 ML PREMIX IV PRN ×2 (01:10→11:32)
[2020-07-06] MEDS: ALBUTEROL INHALER 18 GM INH SCH ×4 (01:16→20:00)
[2020-07-06] MEDS: DEXMEDETOMIDINE 400 MCG in SODIUM CHLORIDE 0.9% 96 ML IV PRN ×2 (03:15→16:00)
[2020-07-06 04:41] LABS: ABG Base Excess 2.2 MMOL/L (-2.5-2.5); ABG HCO3 26.1 MMOL/L (20-26); ABG Oxygen Saturation 91.2 % (95-100); ABG PCO2 35.5 MM HG (35-48); ABG PH 7.463 (7.35-7.45); ABG PO2 61.5 MM HG (80-95); ABG TCO2 21.4 MMOL/L (23-27); Allen Test Positive; Pt O2 Delivery Device BIPAP
[2020-07-06 05:02] LABS: Basophils # 0.1 10*3/uL (0.0-0.2); Basophils % 0.3 % (0.0-0.8); Eosinophils # 0.3 10*3/uL (0.0-0.87); Eosinophils % 1.3 % (0.00-10.9); Hematocrit 50.3 VOL% (42.0-52.0); Hemoglobin 15.5 GM/DL (14.0-18.0); Immature Granulocytes % 1.8 %; Immature Granulocytes Absolute 0.38 #; Lymphocytes # 1.2 10*3/uL (1.4-4.0); Lymphocytes % 5.5 % (21.2-54.2); Mean Corpuscular HGB Conc 30.8 GM/DL (32-36); Mean Corpuscular Volume 88.2 FL (87-102); Mean Platelet Volume 11.6 FL (9.6-12.0); Monocytes % 3.6 % (1.7-12.7); Neutrophils % 87.5 % (38.7-73.9); Platelet Count 234 T/CUMM (130-400); Red Cell Distribution Width 14.8 % (9.3-17.3); White Blood Count 21.1 T/CUMM (4-12)
[2020-07-06 05:09] LABS: Calcium 8.7 MG/DL (8.5-10.1); Osmolality,Calculated 319.9 MOS/KG (273-304); Potassium 4.8 MMOL/L (3.5-5.1)
[2020-07-06 05:23] LABS: Platelet Estimate Adequate
[2020-07-06] MEDS: INSULIN GLARGINE 100 UNIT/ML SUBCUT SCH (08:35)
[2020-07-06] MEDS: AZITHROMYCIN INJ 250 MG in SODIUM CHLORIDE 0.9% 250 ML IV SCH (09:33)
[2020-07-06] MEDS: LORazepam 2 MG/1 ML VIAL IV PRN ×2 (10:56→22:50)
[2020-07-06] MEDS: MORPHINE 4 MG/1 ML VIAL IV PRN (11:10)
[2020-07-06] MEDS: methylPREDNISolone SOD SUC 40 MG/1 ML VIAL IV SCH ×2 (12:10→17:38)
[2020-07-06] MEDS: FAMOTIDINE 20 MG/2 ML VIAL IV SCH (12:32)
[2020-07-06] MEDS ORDERED: MULTIVITAMIN IV SCH (17:00)
[2020-07-06] MEDS ORDERED: INSULIN REGULAR IV SCH (17:00)
[2020-07-06] MEDS ORDERED: [UNRECOGNIZED DRUG - OTHER] IV SCH (17:00)
[2020-07-06] MEDS: PIPERACILLIN/TAZOBACTAM 3,375 MG in SODIUM CHLORIDE 0.9% 100 ML IV SCH (17:05)
[2020-07-06] MEDS: FAT EMULSION 20% 250 ML IV SCH (17:38)
[2020-07-06] MEDS: ENOXAPARIN 80 MG/0.8 ML SYRINGE SUBCUT SCH (17:38)
[2020-07-07] MEDS: INSULIN REGULAR 100 UNIT/ML SUBCUT SCH ×2 (00:05→05:35)
[2020-07-07] MEDS: PHENYLEPHRINE DRIP 40 MG/250 ML PREMIX IV PRN (00:10)
[2020-07-07] MEDS: PIPERACILLIN/TAZOBACTAM 3,375 MG in SODIUM CHLORIDE 0.9% 100 ML IV SCH ×3 (01:00→17:22)
[2020-07-07] MEDS: ALBUTEROL INHALER 18 GM INH SCH ×4 (01:35→19:05)
[2020-07-07] MEDS: methylPREDNISolone SOD SUC 40 MG/1 ML VIAL IV SCH ×3 (01:39→09:46)
[2020-07-07] MEDS: DEXMEDETOMIDINE 400 MCG in SODIUM CHLORIDE 0.9% 96 ML IV PRN ×2 (04:15→17:23)
[2020-07-07 06:26] LABS: Basophils % 0.1 % (0.0-0.8); Hematocrit 49.1 VOL% (42.0-52.0); Hemoglobin 14.6 GM/DL (14.0-18.0); Immature Granulocytes % 1.3 %; Immature Granulocytes Absolute 0.22 #; Lymphocytes # 0.7 10*3/uL (1.4-4.0); Lymphocytes % 3.9 % (21.2-54.2); Mean Corpuscular HGB Conc 29.7 GM/DL (32-36); Mean Corpuscular Volume 92.1 FL (87-102); Mean Platelet Volume 11.1 FL (9.6-12.0); Monocytes % 2.5 % (1.7-12.7); Neutrophils % 92.2 % (38.7-73.9); Platelet Count 188 T/CUMM (130-400); Red Blood Count 5.33 MC/CUMM (3.8-5.5); White Blood Count 16.7 T/CUMM (4-12)
[2020-07-07 06:31] LABS: Lymphocytes 2 % (20-55); Platelet Estimate Normal; Segmented Neutrophils 96 % (50-85); Total Cells Counted 100
[2020-07-07 06:35] LABS: Albumin 1.6 G/DL (3.4-5.0); Bilirubin,Total 1.8 MG/DL (0.2-1.0); Ferritin 2254.4 ng/ml (26-388); Potassium 5.6 MMOL/L (3.5-5.1); Total Protein 5.8 G/DL (6.4-8.3)
[2020-07-07] MEDS: INSULIN GLARGINE 100 UNIT/ML SUBCUT SCH (08:26)
[2020-07-07] MEDS ORDERED: INSULIN REGULAR 100 UNIT/ML IV ONE (09:06)
[2020-07-07] MEDS: LORazepam 2 MG/1 ML VIAL IV PRN ×3 (11:48→21:37)
[2020-07-07] MEDS: AZITHROMYCIN INJ 250 MG in SODIUM CHLORIDE 0.9% 250 ML IV SCH (13:00)
[2020-07-07] MEDS: INSULIN LISPRO 100 UNIT/ML SUBCUT SCH ×3 (13:01→23:34)
[2020-07-07] MEDS: FAMOTIDINE 20 MG/2 ML VIAL IV SCH (13:01)
[2020-07-07 14:34] LABS: Osmolality,Calculated 327.6 MOS/KG (273-304); Potassium 5.2 MMOL/L (3.5-5.1)
[2020-07-07] MEDS: FAT EMULSION 20% 250 ML IV SCH (14:54)
[2020-07-07] MEDS ORDERED: DEXTROSE 5% 1,000 ML IV SCH (15:00)
[2020-07-07] MEDS ORDERED: ALBUMIN 25% 25 GM in PREMIX 1 EACH IV ONE (16:00)
[2020-07-07] MEDS ORDERED: FUROSEMIDE 40 MG/4 ML VIAL IV ONE (16:00)
[2020-07-07] MEDS ORDERED: AMINO ACIDS IV SCH (17:00)
[2020-07-07] MEDS ORDERED: DEXTROSE IV SCH (17:00)
[2020-07-07] MEDS ORDERED: INSULIN REGULAR IV SCH (17:00)
[2020-07-07] MEDS: ENOXAPARIN 80 MG/0.8 ML SYRINGE SUBCUT SCH (17:23)
[2020-07-07] MEDS ORDERED: DIGOXIN 0.5 MG/2 ML AMP IV ONE ×2 (18:31→23:59)
[2020-07-07] MEDS: MORPHINE 4 MG/1 ML VIAL IV PRN (18:38)
[2020-07-07 19:50] LABS: Calcium 9.5 MG/DL (8.5-10.1); Osmolality,Calculated 323.1 MOS/KG (273-304); Potassium 4.2 MMOL/L (3.5-5.1)
[2020-07-08] MEDS: methylPREDNISolone SOD SUC 40 MG/1 ML VIAL IV SCH ×3 (00:03→22:15)
[2020-07-08] MEDS: PIPERACILLIN/TAZOBACTAM 3,375 MG in SODIUM CHLORIDE 0.9% 100 ML IV SCH ×3 (00:05→15:45)
[2020-07-08] MEDS: INSULIN LISPRO 100 UNIT/ML SUBCUT SCH ×6 (00:05→20:54)
[2020-07-08] MEDS: ALBUTEROL INHALER 18 GM INH SCH ×4 (01:45→20:53)
[2020-07-08] MEDS: MORPHINE 4 MG/1 ML VIAL IV PRN ×2 (01:46→18:21)
[2020-07-08] MEDS: LORazepam 2 MG/1 ML VIAL IV PRN ×3 (03:12→15:38)
[2020-07-08] MEDS: DEXMEDETOMIDINE 400 MCG in SODIUM CHLORIDE 0.9% 96 ML IV PRN ×2 (05:00→16:00)
[2020-07-08 05:03] LABS: ABG Base Excess 0.3 MMOL/L (-2.5-2.5); ABG HCO3 24.6 MMOL/L (20-26); ABG Oxygen Saturation 92.7 % (95-100); ABG PCO2 41.5 MM HG (35-48); ABG PH 7.393 (7.35-7.45); ABG PO2 67.9 MM HG (80-95); ABG TCO2 21.9 MMOL/L (23-27); Allen Test Positive; Pt O2 Delivery Device Other
[2020-07-08 05:21] LABS: Basophils % 0.1 % (0.0-0.8); Hematocrit 45.6 VOL% (42.0-52.0); Hemoglobin 13.9 GM/DL (14.0-18.0); Immature Granulocytes % 0.8 %; Lymphocytes # 0.4 10*3/uL (1.4-4.0); Lymphocytes % 3.2 % (21.2-54.2); Mean Corpuscular HGB Conc 30.5 GM/DL (32-36); Mean Corpuscular Volume 92.1 FL (87-102); Mean Platelet Volume 12.4 FL (9.6-12.0); Monocytes % 2.8 % (1.7-12.7); Neutrophils % 93.1 % (38.7-73.9); Platelet Count 181 T/CUMM (130-400); Red Blood Count 4.95 MC/CUMM (3.8-5.5); Red Cell Distribution Width 14.6 % (9.3-17.3)
[2020-07-08 05:27] LABS: Bilirubin,Total 1.9 MG/DL (0.2-1.0); Osmolality,Calculated 328.1 MOS/KG (273-304); Potassium 4.3 MMOL/L (3.5-5.1); Total Protein 5.9 G/DL (6.4-8.3)
[2020-07-08 05:28] LABS: Lymphocytes 3 % (20-55); Platelet Estimate Adequate; Segmented Neutrophils 95 % (50-85); Total Cells Counted 100
[2020-07-08] MEDS: INSULIN GLARGINE 100 UNIT/ML SUBCUT SCH (08:04)
[2020-07-08] MEDS ORDERED: LORazepam 2 MG/1 ML VIAL ONE (10:42)
[2020-07-08] MEDS: FAMOTIDINE 20 MG/2 ML VIAL IV SCH (12:48)
[2020-07-08] MEDS: SALIVA SUBSTITUTE SPRAY 60 ML CAN SWISH/SWAL PRN ×2 (12:50→20:33)
[2020-07-08] MEDS: FAT EMULSION 20% 250 ML IV SCH (15:15)
[2020-07-08] MEDS ORDERED: INSULIN REGULAR IV SCH ×3 (17:00)
[2020-07-08] MEDS ORDERED: DEXTROSE IV SCH ×2 (17:00)
[2020-07-08] MEDS ORDERED: AMINO ACIDS IV SCH ×2 (17:00)
[2020-07-08] MEDS ORDERED: MULTIVITAMIN IV SCH ×3 (17:00)
[2020-07-08] MEDS ORDERED: [UNRECOGNIZED DRUG - OTHER] IV SCH (17:00)
[2020-07-08] MEDS: ENOXAPARIN 80 MG/0.8 ML SYRINGE SUBCUT SCH (17:25)
[2020-07-08] MEDS ORDERED: SODIUM CHLORIDE 0.9% 1,000 ML IV SCH (19:00)
[2020-07-09] MEDS: INSULIN LISPRO 100 UNIT/ML SUBCUT SCH ×5 (00:30→17:00)
[2020-07-09] MEDS: PIPERACILLIN/TAZOBACTAM 3,375 MG in SODIUM CHLORIDE 0.9% 100 ML IV SCH ×3 (00:31→17:00)
[2020-07-09] MEDS: LORazepam 2 MG/1 ML VIAL IV PRN ×10 (00:42→20:57)
[2020-07-09] MEDS: DEXMEDETOMIDINE 400 MCG in SODIUM CHLORIDE 0.9% 96 ML IV PRN ×2 (02:15→11:45)
[2020-07-09] MEDS: ALBUTEROL INHALER 18 GM INH SCH ×3 (02:31→12:00)
[2020-07-09 02:58] LABS: Allen Test Positive; Pt O2 Delivery Device BIPAP
[2020-07-09 03:00] LABS: ABG Base Excess -3.4 MMOL/L (-2.5-2.5); ABG HCO3 21.3 MMOL/L (20-26); ABG Oxygen Saturation 85.2 % (95-100); ABG PCO2 47.8 MM HG (35-48); ABG PH 7.301 (7.35-7.45); ABG PO2 57.1 MM HG (80-95); ABG TCO2 20.6 MMOL/L (23-27)
[2020-07-09 05:19] LABS: Hematocrit 45.6 VOL% (42.0-52.0); Immature Granulocytes % 0.8 %; Immature Granulocytes Absolute 0.08 #; Lymphocytes # 0.3 10*3/uL (1.4-4.0); Lymphocytes % 3.2 % (21.2-54.2); Mean Corpuscular Volume 91.2 FL (87-102); Mean Platelet Volume 11.4 FL (9.6-12.0); Platelet Count 155 T/CUMM (130-400); Red Cell Distribution Width 14.4 % (9.3-17.3); White Blood Count 10.6 T/CUMM (4-12)
[2020-07-09 05:20] LABS: Hemoglobin 13.7 GM/DL (14.0-18.0)
[2020-07-09 05:21] LABS: Albumin 1.9 G/DL (3.4-5.0); Bilirubin,Total 1.6 MG/DL (0.2-1.0); Calcium 8.3 MG/DL (8.5-10.1); Ferritin 1261.9 ng/ml (26-388); Potassium 3.8 MMOL/L (3.5-5.1); Total Protein 5.5 G/DL (6.4-8.3)
[2020-07-09 05:43] LABS: Lymphocytes 4 % (20-55); Platelet Estimate Normal; Segmented Neutrophils 93 % (50-85); Total Cells Counted 100
[2020-07-09] MEDS ORDERED: SODIUM CHLORIDE 23.4% CONC INJ 38.5 MEQ in STERILE WATER INJ 1,000 ML IV SCH (08:00)
[2020-07-09] MEDS: INSULIN GLARGINE 100 UNIT/ML SUBCUT SCH (08:28)
[2020-07-09] MEDS: methylPREDNISolone SOD SUC 40 MG/1 ML VIAL IV SCH (08:32)
[2020-07-09] MEDS ORDERED: FUROSEMIDE 40 MG/4 ML VIAL IV ONE ×2 (10:40→12:00)
[2020-07-09] MEDS: MORPHINE 4 MG/1 ML VIAL IV PRN ×7 (12:11→20:58)
[2020-07-09] MEDS ORDERED: DIGOXIN 0.5 MG/2 ML AMP IV SCH (13:00)
[2020-07-09] MEDS ORDERED: ENOXAPARIN 80 MG/0.8 ML SYRINGE SUBCUT SCH (14:00)
[2020-07-09] MEDS: FAMOTIDINE 20 MG/2 ML VIAL IV SCH (14:36)
[2020-07-09] MEDS ORDERED: DEXTROSE IV SCH (17:00)
[2020-07-09] MEDS ORDERED: AMIODARONE INJ 450 MG in DEXTROSE 5% 241 ML IV SCH ×2 (17:00→23:00)
[2020-07-09] MEDS ORDERED: [UNRECOGNIZED DRUG - OTHER] IV SCH (17:00)
[2020-07-09] MEDS ORDERED: INSULIN REGULAR IV SCH ×2 (17:00)
[2020-07-09] MEDS: FAT EMULSION 20% 250 ML IV SCH (17:00)
[2020-07-09] MEDS ORDERED: AMINO ACIDS IV SCH (17:00)
[2020-07-09] MEDS ORDERED: POTASSIUM PHOSPHATE IV SCH (17:00)
[2020-07-09] MEDS ORDERED: LORazepam 2 MG/1 ML VIAL ONE (17:54)
[2020-07-10] MEDS ORDERED: [UNRECOGNIZED DRUG - OTHER] IV SCH (17:00)
[2020-07-10] MEDS ORDERED: MULTIVITAMIN IV SCH (17:00)
[2020-07-10] MEDS ORDERED: POTASSIUM PHOSPHATE IV SCH (17:00)
[2020-07-10] MEDS ORDERED: INSULIN REGULAR IV SCH (17:00)
== END 2020-07-09 22:05 | disposition expired | DRG 177 ==
LOC: EDUNIT# → N.ED 23:02 → SUATTDRO 06-25 02:33 → N.EDINP 06-25 02:33 → N.2E 06-25 03:16 → N.CC 06-29 16:59
PROVIDERS: ADMIT Internal Medicine; ATTEND Internal Medicine